=== PATIENT | female | born 1980 | race African-American/Black ===

== ENCOUNTER 2017-07-03 21:36 | Emergency (ER) | payer MEDICAID ==
[~2017-07-03] VITALS: Ht 167.6 cm; Wt 106.6 kg
[~2017-07-03 21:36] MED LIST: AZITHROMYCIN250 MG ORAL; HYDROCODON-ACE1 EA15 ORAL; IBUPROFEN600 MG ORAL; TRAMADOL HCL50 MG ORAL
[2017-07-03 21:55] VITALS: BP 131/81
--- NOTE | 2017-07-03 22:12 | Emergency Room Report ---
History of Present Illness General Chief Complaint: Chest Pain Source: Patient Present Illness HPI 37-year-old female no significant past medical history p/w chest pain for 2 days. Localized to right chest, no radiation to back or other areas, sharp in nature, gradual in onset, multiple. Denies SOB. Denies palpitations, diaphoresis, n/v. This is the first occurrence of chest pain. Denies fever, chills, cough, abd pain. Denies trauma. Denies smoking, no family history of cardiac disease at a young age. Denies any history of DVT PE no surgeries not on any OCPs Allergies: Coded Allergies: No Known Allergies (Unverified , 11/15/15) Patient History Past Medical History: see triage record Past Surgical History: none Pertinent Family History: none Last Menstrual Period: 2 weeks ago Now: No Reviewed Nursing Documentation: PMH: Agreed; PSxH: Agreed Nursing Documentation-PMH Hx Seizures: Yes Review of Systems All Other Systems: negative except mentioned in HPI Physical Exam Vital Signs Date Time Temp Pulse Resp B/P (MAP) Pulse Ox O2 Delivery O2 Flow Rate FiO2 07/03/17 21:39 98.4 80 18 131/81 99 Room Air 98.4 Sp02 EP Interpretation: reviewed, normal General Appearance: normal inspection, well appearing, no apparent distress, alert, GCS 15, non-toxic Head: normocephalic, atraumatic Eyes: bilateral eye normal inspection, bilateral eye PERRL, bilateral eye EOMI ENT: normal ENT inspection, normal pharynx, normal voice, moist mucus membranes Neck: normal inspection, full range of motion, supple Respiratory: normal inspection, lungs clear, normal breath sounds, no respiratory distress, no retraction, no wheezing, speaking full sentences, chest symmetrical Cardiovascular #1: normal inspection, regular rate, rhythm, no edema, normal capillary refill Cardiovascular #2: 2+ radial (R), 2+ radial (L) Gastrointestinal: normal inspection, non tender, soft, non-distended, no guarding Musculoskeletal: normal inspection, back normal, normal range of motion, non- tender Neurologic: normal inspection, alert, oriented x3, responsive, motor strength/ tone normal, sensory intact, normal gait, speech normal Psychiatric: normal inspection, judgement/insight normal, memory normal Skin: normal inspection, normal color, no rash, warm/dry, well hydrated, normal turgor Medical Decision Making Diagnostic Impression: Primary Impression: Chest pain ER Course 37-year-old female with no sig pmhx p/w chest pain DDX: Musculoskeletal CP/costochondritis vs. pneumothorax vs. gastritis/GERD PE less likely given history and physical examination, not hypoxic/tachycardic, no risk factors, PERC negative. ACS less likely given age/history Plan: Labs, NSAIDs, EKG, CXR Anticipate DC home as patient appears clinically well. ER course: Patient remained chest pain free during ED stay. Disposition: Patient will be discharged to home. Strict precautions discussed with patient on when to emergently return to the ED : this includes worsening/severe chest pain, palpitations, shortness of breath, syncopal episodes, fever or chills, which may indicate severe illness. Patient verbalized understanding. Patient instructed to follow up with their PMD within the next 2 days. Please note that this Emergency Department Report was dictated using [employer] worker technology software, occasionally this can lead to erroneous entry secondary to interpretation by the dictation equipment. EKG Diagnostic Results EP Interpretation: Yes Rate: normal Rhythm: NSR ST Segments: No acute changes ASA given to patient: NO Rhythm Strip EP Interpretation: Yes Rate: 80 Rhythm: NSR, no PVCs, no ectopy Chest X-ray * CXR: Ordered: Yes 1 view Indication: Chest pain EP interpretation: Yes Interpretation: No consolidation, no effusion, no PTX, no acute cardiopulmonary disease Impression: No acute disease Electronically signed by Marshal Villeda MD Laboratory Tests Test 07/03/17 22:00 White Blood Count 9.8 K/UL (4.8-10.8) Red Blood Count 4.16 M/UL (4.20-5.40) L Hemoglobin 12.1 G/DL (12.0-16.0) Hematocrit 36.4 % (37.0-47.0) L Mean Corpuscular Volume 88 FL (80-99) Mean Corpuscular Hemoglobin 29.2 PG (27.0-31.0) Mean Corpuscular Hemoglobin Concent 33.4 G/DL (32.0-36.0) Red Cell Distribution Width 10.9 % (11.6-14.8) L Platelet Count 371 K/UL (150-450) Mean Platelet Volume 5.9 FL (6.5-10.1) L Neutrophils (%) (Auto) 50.0 % (45.0-75.0) Lymphocytes (%) (Auto) 39.7 % (20.0-45.0) Monocytes (%) (Auto) 8.1 % (1.0-10.0) Eosinophils (%) (Auto) 1.4 % (0.0-3.0) Basophils (%) (Auto) 0.9 % (0.0-2.0) Urine Color Pale yellow Urine Appearance Clear Urine pH 6 (4.5-8.0) Urine Specific Rhodes 1.005 (1.005-1.035) Urine Protein Negative (NEGATIVE) Urine Glucose (UA) Negative (NEGATIVE) Urine Ketones Negative (NEGATIVE) Urine Occult Blood 2+ (NEGATIVE) H Urine Nitrite Negative (NEGATIVE) Urine Bilirubin Negative (NEGATIVE) Urine Urobilinogen Normal MG/DL (0.0-1.0) Urine Leukocyte Esterase 3+ (NEGATIVE) H Urine RBC 0-2 /HPF (0 - 2) Urine WBC 2-4 /HPF (0 - 2) Urine Squamous Epithelial Cells Few /LPF (NONE/OCC) Urine Amorphous Sediment Few /LPF (NONE) H Urine Bacteria Few /HPF (NONE) Urine HCG, Qualitative Negative (NEGATIVE) Sodium Level 138 MMOL/L (136-145) Potassium Level 3.6 MMOL/L (3.5-5.1) Chloride Level 104 MMOL/L (98-107) Carbon Dioxide Level 27 MMOL/L (21-32) Anion Gap 7 mmol/L (5-15) Blood Urea Nitrogen 10 mg/dL (7-18) Creatinine 1.0 MG/DL (0.55-1.30) Estimate Glomerular Filtration Rate > 60 mL/min (>60) Glucose Level 97 MG/DL (74-106) Calcium Level 8.9 MG/DL (8.5-10.1) Total Bilirubin 0.3 MG/DL (0.2-1.0) Aspartate Amino Transferase (AST) 12 U/L (15-37) L Alanine Aminotransferase (ALT) 20 U/L (12-78) Alkaline Phosphatase 56 U/L (46-116) Troponin I 0.000 ng/mL (0.000-0.056) Pro-B-Type Natriuretic Peptide 7 pg/mL (0-125) Total Protein 8.1 G/DL (6.4-8.2) Albumin 3.3 G/DL (3.4-5.0) L Globulin 4.8 g/dL Albumin/Globulin Ratio 0.7 (1.0-2.7) L Urine Opiates Screen Negative (NEGATIVE) Urine Barbiturates Screen Negative (NEGATIVE) Phencyclidine (PCP) Screen Negative (NEGATIVE) Urine Amphetamines Screen Negative (NEGATIVE) Urine Benzodiazepines Screen Negative (NEGATIVE) Urine Cocaine Screen Negative (NEGATIVE) Urine Marijuana (THC) Screen Negative (NEGATIVE) HIV (1&2) Antibody Rapid Pending Last Vital Signs Date Time Temp Pulse Resp B/P (MAP) Pulse Ox O2 Delivery O2 Flow Rate FiO2 07/03/17 21:39 98.4 80 18 131/81 99 Room Air 98.4 Disposition: HOME, SELF-CARE Condition: Improved Patient Instructions: Nonspecific Chest Pain Marshal Villeda M.D. July 03, 2017 22:12
[2017-07-03 22:38] LABS: ANION GAP 7 mmol/L (5-15); BLOOD UREA NITROGEN 10 mg/dL (7-18); CALCIUM 8.9 MG/DL (8.5-10.1); CARBON DIOXIDE 27 MMOL/L (21-32); CHLORIDE 104 MMOL/L (98-107); POTASSIUM 3.6 MMOL/L (3.5-5.1); SODIUM 138 MMOL/L (136-145)
[2017-07-03 22:41] LABS: APPEARANCE,URINE CLEAR; BASOPHILS % (AUTO) 0.9 % (0.0-2.0); BILIRUBIN, URINE NEGATIVE (NEGATIVE); COLOR,URINE PALE YELLOW; EOSINOPHILS % (AUTO) 1.4 % (0.0-3.0); GLUCOSE, URINE (UA) NEGATIVE (NEGATIVE); HEMATOCRIT 36.4 % (37.0-47.0); HEMOGLOBIN 12.1 G/DL (12.0-16.0); KETONES,URINE NEGATIVE (NEGATIVE); LEUKOCYTE ESTERASE ,URINE 3+ (NEGATIVE); LYMPHOCYTES % (AUTO) 39.7 % (20.0-45.0); MEAN CORPUSCULAR VOLUME 88 FL (80-99); MONOCYTES % (AUTO) 8.1 % (1.0-10.0); NITRITE,URINE NEGATIVE (NEGATIVE); PH,URINE 6 (4.5-8.0); PLATELET COUNT 371 K/UL (150-450); PROTEIN,URINE NEGATIVE (NEGATIVE); RED BLOOD COUNT 4.16 M/UL (4.20-5.40); RED CELL DISTRIBUTION WIDTH 10.9 % (11.6-14.8); UROBILINOGEN,URINE NORMAL MG/DL (0.0-1.0); WHITE BLOOD COUNT 9.8 K/UL (4.8-10.8)
[2017-07-03 22:50] LABS: ALANINE AMINOTRANSFERASE 20 U/L (12-78); ALBUMIN 3.3 G/DL (3.4-5.0); ALBUMIN/GLOBULIN RATIO 0.7 (1.0-2.7); ALKALINE PHOSPHATASE 56 U/L (46-116); ASPARTATE AMINO TRANSFERASE 12 U/L (15-37); BILIRUBIN,TOTAL 0.3 MG/DL (0.2-1.0)
[2017-07-04 00:12] VITALS: BP 129/78
--- NOTE | 2017-07-04 10:01 | Diagnostic Imaging Report ---
Indication: Chest pain Comparison: 11/15/2015 A single view chest radiograph was obtained. Findings: Cardiomediastinal appearance is within normal limits for age. Pulmonary vascularity is appropriate. The diaphragmatic contour is smooth and costophrenic angles are sharp. No pleural effusions are identified. The bones are unremarkable. Impression: No acute findings
--- NOTE | 2017-07-04 15:54 | Cardiology Report ---
APPROVED REPORT EKG Measurement Heart [id number] Normal sinus rhythm Normal ECG
== END 2017-07-04 00:15 | disposition home or self-care (01) ==
LOC: EMR 22:25
DX: R07.9 Chest pain, unspecified (principal)
CPT/HCPCS: 36415; 71045; 80053; 80307; 81003; 81025; 83880; 84484; 85025; 86703; 93005; 99283

== ENCOUNTER 2017-10-08 01:19 | Emergency (ER) | payer MEDICAID ==
[~2017-10-08] VITALS: Ht 167.6 cm; Wt 108.9 kg
[2017-10-08 01:47] VITALS: BP 112/75
[2017-10-08] MEDS ORDERED: Bacitracin Oint UD TOPIC ONE (02:00)
[2017-10-08] MEDS ORDERED: Bactrim-DS 1 tab ORAL ONE (02:00)
[2017-10-08] MEDS ORDERED: MUPIROCIN22 GM TOPIC (02:05)
[2017-10-08] MEDS ORDERED: BACTRIM DS TAB1 EAC1 ORAL (02:05)
--- NOTE | 2017-10-08 02:05 | Emergency Room Report ---
History of Present Illness General Chief Complaint: Skin Rash/Abscess Source: Patient Present Illness HPI Is a 37-year-old female with no significant past medical history. She presents with lesion to her legs. She is concerned that it may be spider bite. Did not see anything biting her. She noticed some itching and swelling to that area. This is a blister to her left ankle area. She also has lesion to her left thigh and right ankle area. Itching in nature. No nausea no vomiting. No fever or chills. Pain is 5 out of 10. Did not take anything for it. Allergies: Coded Allergies: No Known Allergies (Unverified , 11/15/15) Patient History Past Medical History: see triage record, old chart reviewed Past Surgical History: other Pertinent Family History: none Social History: Denies: smoking Last Menstrual Period: Sep Now: No Immunizations: other Reviewed Nursing Documentation: PMH: Agreed; PSxH: Agreed Nursing Documentation-PMH History Of Psychiatric Problem: Yes - PANIC ATTACK Hx Seizures: Yes Review of Systems Eye: Denies: eye pain, blurred vision ENT: Denies: ear pain, nose congestion, throat swelling Respiratory: Denies: cough, shortness of breath Cardiovascular: Denies: chest pain, palpitations Gastrointestinal: Denies: abdominal pain, diarrhea, nausea, vomiting Musculoskeletal: Denies: back pain, joint pain Skin: Reports: rash Neurological: Denies: headache, numbness Endocrine: Denies: increased thirst, increased urine Hematologic/Lymphatic: Denies: easy bruising All Other Systems: negative except mentioned in HPI Physical Exam Vital Signs Date Time Temp Pulse Resp B/P (MAP) Pulse Ox O2 Delivery O2 Flow Rate FiO2 10/08/17 01:31 98.3 85 16 112/75 98 Room Air 98.2 vitals normal Sp02 EP Interpretation: reviewed, normal General Appearance: well appearing, no apparent distress, alert Head: normocephalic, atraumatic Eyes: bilateral eye PERRL, bilateral eye EOMI ENT: hearing grossly normal, normal pharynx Neck: full range of motion, supple, no meningismus Respiratory: chest non-tender, lungs clear, normal breath sounds Cardiovascular #1: regular rate, rhythm, no murmur Gastrointestinal: normal bowel sounds, non tender, no mass, no organomegaly, no bruit, non-distended Musculoskeletal: back normal, gait/station normal, normal range of motion, other - Left thigh: There is an erythematous lesion measuring about 3 cm. No abscess seen. Neurologic: alert, oriented x3 Psychiatric: mood/affect normal Skin: warm/dry Medical Decision Making Diagnostic Impression: Primary Impression: Cellulitis and abscess of lower extremity ER Course Patient presents with cellulitis and lower extremity. Most likely MRSA. No evidence of necrotizing fasciitis. No obvious abscess that can be I and D. I did send a culture of the blister. We'll discharge home. Last Vital Signs Date Time Temp Pulse Resp B/P (MAP) Pulse Ox O2 Delivery O2 Flow Rate FiO2 10/08/17 01:47 98.2 16 112/75 98 Room Air 98.2 10/08/17 01:31 85 Status: improved Disposition: HOME, SELF-CARE Condition: Stable Scripts Mupirocin* (MUPIROCIN*) 22 Gm Oint...g. 1 APPLIC TOPIC THREE TIMES A DAY, #22 GM Prov: EDMUND FARRELL M.D. 10/08/17 Trimethoprim/Sulfamethoxazole 160/800* (BACTRIM DS TABLET*) 1 Each Tablet 1 TAB ORAL Q12H, #14 TAB 0 Refills Prov: EDMUND FARRELL M.D. 10/08/17 Additional Instructions: Keep area clean. Clean first with hydrogen peroxide and then apply antibiotic ointment. Follow-up with your Dr. in 2 to 3 days of not better. Return if symptom worsen. EDMUND FARRELL M.D. Oct 08, 2017 02:05
[2017-10-08 02:14] VITALS: BP 112/75
== END 2017-10-08 02:15 | disposition home or self-care (01) ==
LOC: EMR 01:34
DX: L03.116 Cellulitis of left lower limb (principal)
CPT/HCPCS: 87070; 87205; 99283

== ENCOUNTER 2017-10-17 00:51 | Emergency (ER) | payer MEDICAID ==
[~2017-10-17] VITALS: Ht 167.6 cm; Wt 108.9 kg
[~2017-10-17 00:51] MED LIST changes: +BACTRIM DS TAB1 EAC1 ORAL; +MUPIROCIN22 GM TOPIC
[2017-10-17 01:05] VITALS: BP 110/72
[2017-10-17] MEDS ORDERED: BENADRYL25 MG ORAL (01:13)
[2017-10-17 01:20] VITALS: BP 110/72
--- NOTE | 2017-10-18 04:52 | Emergency Room Report ---
History of Present Illness General Chief Complaint: Skin Rash/Abscess Source: Patient Present Illness HPI Patient is a 37-year-old female who presented after increased generalized skin rash. Patient recently been treated for urinary infection and was given prescription for antibiotics. Patient had the had not been having any fever. She denied vomiting. Patient had the been taking Bactrim. She reports having a generalized body itchiness. Allergies: Coded Allergies: No Known Allergies (Unverified , 11/15/15) Patient History Past Medical History: see triage record Last Menstrual Period: 10/02/17 Now: No Reviewed Nursing Documentation: PMH: Agreed; PSxH: Agreed Nursing Documentation-PMH Past Medical History: No History, Except For Hx Seizures: Yes Review of Systems All Other Systems: negative except mentioned in HPI Physical Exam Vital Signs Date Time Temp Pulse Resp B/P (MAP) Pulse Ox O2 Delivery O2 Flow Rate FiO2 10/17/17 00:53 98.4 91 18 110/72 96 Room Air 98.4 Sp02 EP Interpretation: reviewed, normal General Appearance: alert, GCS 15 Head: atraumatic ENT: normal ENT inspection, hearing grossly normal, normal voice Neck: normal inspection, full range of motion, supple, no bony tend Respiratory: normal inspection, lungs clear, normal breath sounds, no respiratory distress, no retraction, no wheezing Cardiovascular #1: regular rate, rhythm, no edema Gastrointestinal: normal inspection, normal bowel sounds, non tender, soft, no guarding, no hernia Genitourinary: no CVA tenderness Musculoskeletal: normal inspection, back normal, normal range of motion Neurologic: normal inspection, alert, responsive, speech normal Psychiatric: normal inspection, judgement/insight normal, mood/affect normal Skin: other - mild extremity papular rash without erythema or exudates Medical Decision Making Diagnostic Impression: Primary Impression: Rash and other nonspecific skin eruption ER Course Patient presented for skin rash. Differential diagnosis included was not limited to Akhtar-Gian syndrome, urticaria, erythema multiforme, contact dermatitis. Patient's benign exam and does not appear to require any further imaging or laboratory testing at this time. The patient is advised to discontinue her antibiotics. Patient was advised follow-up with primary care physician. She is given prescription for Benadryl for itching. Last Vital Signs Date Time Temp Pulse Resp B/P (MAP) Pulse Ox O2 Delivery O2 Flow Rate FiO2 10/17/17 01:20 98.4 18 110/72 96 Room Air 98.4 10/17/17 01:05 71 Status: improved Disposition: HOME, SELF-CARE Condition: Stable Scripts Diphenhydramine Hcl* (BENADRYL*) 25 Mg Capsule 25 MG ORAL Q6H PRN for Itching, #30 CAP Prov: Doc Sigala MD 10/17/17 Referrals: SMITHA RICH,REFERRING (PCP) Patient Instructions: Doc Gutiérrez MD Oct 18, 2017 04:52
== END 2017-10-17 01:20 | disposition home or self-care (01) ==
LOC: EMR 01:17
DX: R21 Rash and other nonspecific skin eruption (principal); Z86.69 Personal history of other diseases of the nervous system and sense organs
CPT/HCPCS: 99282

== ENCOUNTER 2017-12-13 20:10 | Emergency (ER) | payer MEDICAID ==
[~2017-12-13] VITALS: Ht 170.2 cm; Wt 108.9 kg
[~2017-12-13 20:10] MED LIST changes: +BENADRYL25 MG ORAL
[2017-12-13 20:30] VITALS: BP 142/80
[2017-12-13] MEDS ORDERED: IBUPROFEN600 MG ORAL (21:31)
[2017-12-13 21:46] VITALS: BP 138/74
[2017-12-13 21:51] VITALS: BP 138/74
--- NOTE | 2017-12-13 22:20 | Emergency Room Report ---
History of Present Illness General Chief Complaint: Chest Pain Source: Patient, Medical Record Present Illness HPI Patient presents with complaints of left chest pain Reports that the pain has been off and on for the past several days She feels that the pain is worse with turning to the left or touching the area Denies any shortness of breath denies any vomiting Denies any recent travel Denies any calf pain or swelling Pain is 3 out of 10 Does not recall specifically what she was doing when she first felt the discomfort Allergies: Coded Allergies: No Known Allergies (Unverified , 11/15/15) Patient History Past Medical History: see triage record Pertinent Family History: none Last Menstrual Period: 11/21/2017 Now: No Reviewed Nursing Documentation: PMH: Agreed; PSxH: Agreed Nursing Documentation-PMH Past Medical History: No History, Except For Hx Seizures: Yes - Last one 14 years ago. Does not take any meds for it. Review of Systems All Other Systems: negative except mentioned in HPI Physical Exam Vital Signs Date Time Temp Pulse Resp B/P (MAP) Pulse Ox O2 Delivery O2 Flow Rate FiO2 12/13/17 20:28 99.5 90 19 140/77 100 Room Air Sp02 EP Interpretation: reviewed, normal General Appearance: well appearing, no apparent distress Head: normocephalic, atraumatic Eyes: bilateral eye PERRL, bilateral eye EOMI ENT: hearing grossly normal, normal pharynx, TMs + canals normal, uvula midline Neck: full range of motion, supple, no meningismus, no bony tend Respiratory: lungs clear, normal breath sounds, no rhonchi, no respiratory distress, no retraction, no accessory muscle use Cardiovascular #1: normal peripheral pulses, regular rate, rhythm, no edema, no gallop, no JVD, no murmur Gastrointestinal: normal bowel sounds, non tender, soft, no mass, no organomegaly, non-distended, no guarding, no hernia, no pulsatile mass, no rebound Genitourinary: no CVA tenderness Musculoskeletal: normal inspection Neurologic: oriented x3, responsive, 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 tested, motor strength/ tone normal, sensory intact Psychiatric: mood/affect normal Skin: normal color, no rash, warm/dry, palpation normal Lymphatic: normal inspection, no adenopathy Medical Decision Making Diagnostic Impression: Primary Impression: Chest pain ER Course Patient is a fairly complex patient with multiple differential to consideration including but not limited to cardiac cardiopulmonary and vascular emergencies Patient's cardiac score is low EKG and chest x-ray are normal Patient remains hemodynamically stable Heart rate is normal my consideration for pulmonary embolism is low and further investigation has not been made at this time given the clinical history and the exam Patient stable for initial conservative outpatient trial and will return with any worsening symptoms EKG Diagnostic Results Rate: normal Rhythm: NSR ST Segments: no acute changes Rhythm Strip Diag. Results EP Interpretation: yes Rate: 80 Rhythm: NSR, no PVC's, no ectopy Chest X-Ray Diagnostic Results Chest X-Ray Diagnostic Results : Chest X-Ray Ordered: Yes # of Views/Limited/Complete: 1 View Indication: Chest Pain EP Interpretation: Yes Interpretation: no consolidation, no effusion, no pneumothorax Impression: No acute disease Electronically Signed by: Brandi Langford DO Last Vital Signs Date Time Temp Pulse Resp B/P (MAP) Pulse Ox O2 Delivery O2 Flow Rate FiO2 12/13/17 21:51 98.0 19 138/74 100 Room Air 12/13/17 21:47 78 Status: improved Disposition: HOME, SELF-CARE Condition: Stable Scripts Ibuprofen* (MOTRIN*) 600 Mg Tablet 600 MG ORAL Q8H PRN for For Pain, #20 TAB 0 Refills Prov: Brandi Langford DO 12/13/17 Patient Instructions: Nonspecific Chest Pain Additional Instructions: Patient is provided with the discharge instructions notified to follow up with primary doctor in the next 2-3 days otherwise return to the er with any worsening symptoms. Please note that this report is being documented using [employer] technology. This can lead to erroneous entry secondary to incorrect interpretation by the dictating instrument. Brandi Langford DO Dec 13, 2017 22:20
--- NOTE | 2017-12-14 13:50 | Diagnostic Imaging Report ---
Indication: Chest pain Comparison: 07/03/2017 A single view chest radiograph was obtained. Findings: Cardiomediastinal appearance is within normal limits for age. The lungs are clear. Pulmonary vascularity is appropriate. The diaphragmatic contour is smooth and costophrenic angles are sharp. No pleural effusions are identified. The bones are unremarkable. Impression: No acute findings
--- NOTE | 2017-12-15 15:20 | Cardiology Report ---
APPROVED REPORT EKG Measurement Heart [id number] Normal sinus rhythm Normal ECG
== END 2017-12-13 21:51 | disposition home or self-care (01) ==
LOC: EMR 20:40
DX: R07.9 Chest pain, unspecified (principal)
CPT/HCPCS: 71045; 93005; 99283

== ENCOUNTER 2018-02-21 04:22 | Emergency (ER) | payer MEDICAID ==
[~2018-02-21] VITALS: Ht 165.1 cm; Wt 108.9 kg
[2018-02-21] MEDS ORDERED: NKM (04:51)
--- NOTE | 2018-02-21 04:56 | NUR ---
ED Nurse Note: Pt walked in ER and c/o R upper shoulder pain. pain level 7/10. Pt is AO x 4times, VSS, on room air no distress. ERMD seen Pt at bedside.
[2018-02-21 04:58] VITALS: BP 134/78
--- NOTE | 2018-02-21 05:29 | Emergency Room Report ---
History of Present Illness General Chief Complaint: Back Pain-No Injury Source: Patient (Doc Sigala MD) Present Illness HPI Patient is a 38-year-old female presented after increased upper back pain. Patient had recent onset of symptoms. Patient denies any fever. She reports having some increased cough. She had been having intermittent chest pain. This is gotten somewhat worse. Patient denies any relief with ibuprofen. (Doc Sigala MD) Allergies: Coded Allergies: No Known Allergies (Unverified , 11/15/15) Patient History Past Medical History: see triage record Last Menstrual Period: around JAN Now: No : 4 Para: 3 Reviewed Nursing Documentation: PMH: Agreed; PSxH: Agreed (Doc Sigala MD) Nursing Documentation-PMH Hx Seizures: Yes - 13 years ago (Doc Sigala MD) Review of Systems All Other Systems: negative except mentioned in HPI (Doc Sigala MD) Physical Exam Vital Signs Date Time Temp Pulse Resp B/P (MAP) Pulse Ox O2 Delivery O2 Flow Rate FiO2 02/21/18 04:45 97.9 72 14 143/71 99 Room Air Sp02 EP Interpretation: reviewed, normal General Appearance: normal inspection, well appearing, no apparent distress, alert, GCS 15, obese Head: atraumatic ENT: normal ENT inspection, hearing grossly normal, normal voice Neck: normal inspection, full range of motion, supple, no bony tend Respiratory: normal inspection, lungs clear, normal breath sounds, no respiratory distress, no retraction, no wheezing Cardiovascular #1: regular rate, rhythm, no edema Gastrointestinal: normal inspection, normal bowel sounds, non tender, soft, no guarding, no hernia Genitourinary: no CVA tenderness Musculoskeletal: normal inspection, back normal, normal range of motion Neurologic: normal inspection, alert, oriented x3, responsive, 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 Patient was noted to have multiple visits for chest discomfort in the past. Patient was noted to have worsening pain. Chest x-ray 1 view interpreted by me showed normal cardiac size without evident infiltrate. Patient had previous nondiagnostic workups. CT of the chest was ordered due to patient's concerning chest discomfort. Labs Test 02/21/18 06:10 02/21/18 06:30 Urine Color Pale yellow Urine Appearance Slightly cloudy Urine pH 7 (4.5-8.0) Urine Specific Hardy 1.015 (1.005-1.035) Urine Protein Negative (NEGATIVE) Urine Glucose (UA) Negative (NEGATIVE) Urine Ketones Negative (NEGATIVE) Urine Blood 3+ (NEGATIVE) Urine Nitrite Negative (NEGATIVE) Urine Bilirubin Negative (NEGATIVE) Urine Urobilinogen Normal MG/DL (0.0-1.0) Urine Leukocyte Esterase 1+ (NEGATIVE) Urine RBC 2-4 /HPF (0 - 2) Urine WBC 0-2 /HPF (0 - 2) Urine Squamous Epithelial Cells Few /LPF (NONE/OCC) Urine Bacteria Few /HPF (NONE) Urine HCG, Qualitative Negative (NEGATIVE) White Blood Count 6.0 K/UL (4.8-10.8) Red Blood Count 4.25 M/UL (4.20-5.40) Hemoglobin 12.5 G/DL (12.0-16.0) Hematocrit 36.9 % (37.0-47.0) Mean Corpuscular Volume 87 FL (80-99) Mean Corpuscular Hemoglobin 29.4 PG (27.0-31.0) Mean Corpuscular Hemoglobin Concent 33.9 G/DL (32.0-36.0) Red Cell Distribution Width 11.7 % (11.6-14.8) Platelet Count 383 K/UL (150-450) Mean Platelet Volume 5.9 FL (6.5-10.1) Neutrophils (%) (Auto) 58.1 % (45.0-75.0) Lymphocytes (%) (Auto) 32.3 % (20.0-45.0) Monocytes (%) (Auto) 8.2 % (1.0-10.0) Eosinophils (%) (Auto) 0.8 % (0.0-3.0) Basophils (%) (Auto) 0.6 % (0.0-2.0) Prothrombin Time 10.6 SEC (9.30-11.50) Prothromb Time International Ratio 1.0 (0.9-1.1) Activated Partial Thromboplast Time 27 SEC (23-33) Sodium Level 137 MMOL/L (136-145) Potassium Level 4.2 MMOL/L (3.5-5.1) Chloride Level 105 MMOL/L (98-107) Carbon Dioxide Level 26 MMOL/L (21-32) Anion Gap 6 mmol/L (5-15) Blood Urea Nitrogen 14 mg/dL (7-18) Creatinine 1.0 MG/DL (0.55-1.30) Estimat Glomerular Filtration Rate > 60 mL/min (>60) Glucose Level 101 MG/DL (74-106) Calcium Level 8.9 MG/DL (8.5-10.1) Total Bilirubin 0.4 MG/DL (0.2-1.0) Aspartate Amino Transf (AST/SGOT) 14 U/L (15-37) Alanine Aminotransferase (ALT/SGPT) 20 U/L (12-78) Alkaline Phosphatase 55 U/L (46-116) Troponin I 0.004 ng/mL (0.000-0.056) Total Protein 7.7 G/DL (6.4-8.2) Albumin 3.3 G/DL (3.4-5.0) Globulin 4.4 g/dL Albumin/Globulin Ratio 0.8 (1.0-2.7) (Doc Sigala MD) ER Course This patient was turned over to me by Dr. Sigala. The patient has a history of recurrent chest pain. She was awaiting CTA of the chest to rule out aortic dissection. There is no evidence of aortic abnormality or PE. The patient was well-appearing and nontoxic. I suspect the patient has costochondritis or musculoskeletal pain in the etiology. The patient will be given anti- inflammatories and instructed to follow-up closely with her primary care physician. At this time no emergency medical condition is identified. Laboratory Tests Test 02/21/18 06:10 02/21/18 06:30 Urine Color Pale yellow Urine Appearance Slightly cloudy Urine pH 7 (4.5-8.0) Urine Specific Hardy 1.015 (1.005-1.035) Urine Protein Negative (NEGATIVE) Urine Glucose (UA) Negative (NEGATIVE) Urine Ketones Negative (NEGATIVE) Urine Blood 3+ (NEGATIVE) H Urine Nitrite Negative (NEGATIVE) Urine Bilirubin Negative (NEGATIVE) Urine Urobilinogen Normal MG/DL (0.0-1.0) Urine Leukocyte Esterase 1+ (NEGATIVE) H Urine RBC 2-4 /HPF (0 - 2) H Urine WBC 0-2 /HPF (0 - 2) Urine Squamous Epithelial Cells Few /LPF (NONE/OCC) Urine Bacteria Few /HPF (NONE) Urine HCG, Qualitative Negative (NEGATIVE) White Blood Count 6.0 K/UL (4.8-10.8) Red Blood Count 4.25 M/UL (4.20-5.40) Hemoglobin 12.5 G/DL (12.0-16.0) Hematocrit 36.9 % (37.0-47.0) L Mean Corpuscular Volume 87 FL (80-99) Mean Corpuscular Hemoglobin 29.4 PG (27.0-31.0) Mean Corpuscular Hemoglobin Concent 33.9 G/DL (32.0-36.0) Red Cell Distribution Width 11.7 % (11.6-14.8) Platelet Count 383 K/UL (150-450) Mean Platelet Volume 5.9 FL (6.5-10.1) L Neutrophils (%) (Auto) 58.1 % (45.0-75.0) Lymphocytes (%) (Auto) 32.3 % (20.0-45.0) Monocytes (%) (Auto) 8.2 % (1.0-10.0) Eosinophils (%) (Auto) 0.8 % (0.0-3.0) Basophils (%) (Auto) 0.6 % (0.0-2.0) Erythrocyte Sedimentation Rate 23 MM/HR (0-20) H Prothrombin Time 10.6 SEC (9.30-11.50) Prothrombin Time INR 1.0 (0.9-1.1) PTT 27 SEC (23-33) Sodium Level 137 MMOL/L (136-145) Potassium Level 4.2 MMOL/L (3.5-5.1) Chloride Level 105 MMOL/L (98-107) Carbon Dioxide Level 26 MMOL/L (21-32) Anion Gap 6 mmol/L (5-15) Blood Urea Nitrogen 14 mg/dL (7-18) Creatinine 1.0 MG/DL (0.55-1.30) Estimate Glomerular Filtration Rate > 60 mL/min (>60) Glucose Level 101 MG/DL (74-106) Calcium Level 8.9 MG/DL (8.5-10.1) Total Bilirubin 0.4 MG/DL (0.2-1.0) Aspartate Amino Transferase (AST) 14 U/L (15-37) L Alanine Aminotransferase (ALT) 20 U/L (12-78) Alkaline Phosphatase 55 U/L (46-116) Troponin I 0.004 ng/mL (0.000-0.056) Total Protein 7.7 G/DL (6.4-8.2) Albumin 3.3 G/DL (3.4-5.0) L Globulin 4.4 g/dL Albumin/Globulin Ratio 0.8 (1.0-2.7) L ([facility]. ) Last Vital Signs Date Time Temp Pulse Resp B/P (MAP) Pulse Ox O2 Delivery O2 Flow Rate FiO2 02/21/18 04:58 97.9 85 16 134/78 99 Room Air Status: unchanged (Doc Sigala MD) Referrals: SMITHA RICH,REFERRING (PCP) Doc Sigala MD Feb 21, 2018 05:29 [facility] Feb 21, 2018 09:39
[2018-02-21] MEDS ORDERED: Albuterol/Ipratropium 3ml neb HHN ONE (05:45)
[2018-02-21] MEDS ORDERED: Morphine Sulfate 4mg/ml Inj (IV/IM USE ONLY) IVP ONE (06:15)
[2018-02-21] MEDS ORDERED: Isovue-370 150ml vial INJ PRN (06:15)
[2018-02-21 06:27] LABS: APPEARANCE,URINE SLIGHTLY CLOUDY; BILIRUBIN, URINE NEGATIVE (NEGATIVE); COLOR,URINE PALE YELLOW; GLUCOSE, URINE (UA) NEGATIVE (NEGATIVE); KETONES,URINE NEGATIVE (NEGATIVE); LEUKOCYTE ESTERASE ,URINE 1+ (NEGATIVE); NITRITE,URINE NEGATIVE (NEGATIVE); PH,URINE 7 (4.5-8.0); PROTEIN,URINE NEGATIVE (NEGATIVE); UROBILINOGEN,URINE NORMAL MG/DL (0.0-1.0)
--- NOTE | 2018-02-21 06:41 | NUR ---
ED Nurse Note: Urine and blood sample sent to lab.
[2018-02-21 06:59] LABS: BASOPHILS % (AUTO) 0.6 % (0.0-2.0); EOSINOPHILS % (AUTO) 0.8 % (0.0-3.0); HEMATOCRIT 36.9 % (37.0-47.0); HEMOGLOBIN 12.5 G/DL (12.0-16.0); LYMPHOCYTES % (AUTO) 32.3 % (20.0-45.0); MEAN CORPUSCULAR VOLUME 87 FL (80-99); MONOCYTES % (AUTO) 8.2 % (1.0-10.0); NEUTROPHILS % (AUTO) 58.1 % (45.0-75.0); PLATELET COUNT 383 K/UL (150-450); RED BLOOD COUNT 4.25 M/UL (4.20-5.40); RED CELL DISTRIBUTION WIDTH 11.7 % (11.6-14.8)
[2018-02-21 07:02] LABS: ANION GAP 6 mmol/L (5-15); BLOOD UREA NITROGEN 14 mg/dL (7-18); CALCIUM 8.9 MG/DL (8.5-10.1); CARBON DIOXIDE 26 MMOL/L (21-32); CHLORIDE 105 MMOL/L (98-107); POTASSIUM 4.2 MMOL/L (3.5-5.1); SODIUM 137 MMOL/L (136-145)
[2018-02-21 07:07] LABS: ALANINE AMINOTRANSFERASE 20 U/L (12-78); ALBUMIN 3.3 G/DL (3.4-5.0); ALBUMIN/GLOBULIN RATIO 0.8 (1.0-2.7); ALKALINE PHOSPHATASE 55 U/L (46-116); ASPARTATE AMINO TRANSFERASE 14 U/L (15-37); BILIRUBIN,TOTAL 0.4 MG/DL (0.2-1.0)
--- NOTE | 2018-02-21 07:24 | NUR ---
HAND-OFF: Report given to MAGDALENE Cowan.
--- NOTE | 2018-02-21 07:30 | NUR ---
ED Nurse Note: received patient in bed, patient resting comfortably in bed, received consent for contrast from pt, risk/benefit explained by Dr. Macias.
--- NOTE | 2018-02-21 09:14 | Diagnostic Imaging Report ---
Indication: Chest pain Technique: Continuous helical transaxial imaging of the chest was obtained from the thoracic inlet to the upper abdomen during rapid intravenous contrast administration. Arterial phase of enhancement obtained. Coronal 2-D reformats were also obtained and maximum intensity projection images in multiple planes. Study obtained in a Siemens sensation [address] Automatic Exposure Control was utilized. Total Dose length Product (DLP): 976.[address] Dose Index Volume (CTDIvol): 27.89 mGy Comparison: None Findings: Pulmonary artery is not optimally opacified but there are no obvious filling defects. No adenopathy, pleural or pericardial effusions are identified. The aorta is also not opacified well but there is no evidence of an aneurysm. No infiltrate identified. There is breathing motion further limiting evaluation. The visualized part of the upper abdomen is unremarkable. IMPRESSION: No acute disease identified within the chest. Suboptimal evaluation for pulmonary embolus with no obvious evidence of such. Breathing motion artifact The CT scanner at [facility] is accredited by the [employer] and the scans are performed using dose optimization techniques as appropriate to a performed exam including Automatic Exposure control.
[2018-02-21] MEDS ORDERED: IBUPROFEN800 MG ORAL (09:41)
[2018-02-21] MEDS ORDERED: LIDODERM700 M1 TOPIC (09:41)
--- NOTE | 2018-02-21 09:56 | NUR ---
ED Nurse Note: Patient is being discharged, cleared by ERMD. Discharge instructions/paper given, explained, explained eletronic prescription sent to the [facility]. patientverbalized understanding, received signature on the paper. ID band removed. Patient ambulated out of ED with steady gait with all belongings.
[2018-02-21 09:58] VITALS: BP 134/78
--- NOTE | 2018-02-21 11:44 | Diagnostic Imaging Report ---
Indication: Chest pain Comparison: 12/13/2017 A single view chest radiograph was obtained. Findings: Cardiomediastinal appearance is within normal limits for age. The lungs are clear. Pulmonary vascularity is appropriate. The diaphragmatic contour is smooth and costophrenic angles are sharp. No pleural effusions are identified. The bones are unremarkable. Impression: No acute findings
== END 2018-02-21 10:05 | disposition home or self-care (01) ==
LOC: EMR 05:01
DX: R07.9 Chest pain, unspecified (principal)
CPT/HCPCS: 36415; 71045; 71275; 80053; 81003; 81025; 84484; 85025; 85610; 85651; 85730; 93005; 94640; 94664; 99284; J2270; Q9967; J7620

== ENCOUNTER 2018-05-05 11:48 | Emergency (ER) | payer MEDICAID ==
[~2018-05-05] VITALS: Ht 167.6 cm; Wt 111.1 kg
[~2018-05-05 11:48] MED LIST changes: +IBUPROFEN800 MG ORAL; +LIDODERM700 M1 TOPIC; +NKM
[2018-05-05 11:55] VITALS: BP 128/77
--- NOTE | 2018-05-05 11:55 | NUR ---
ED Nurse Note: Ambulated in to ER due to sharp pressure on chest and back. Denies any pain at this time. Pt states that she had SOB when she had pain on the chest, pointing epigastric area. No labor breathing and RA 99%.
[2018-05-05 12:13] VITALS: BP 128/77
--- NOTE | 2018-05-05 12:14 | NUR ---
ED Nurse Note: Pt cleared by health care Provider for discharge. DC instructions/prescription was given and explained to pt and verbalized understanding of teachings. All medical deviecs such as ID band removed. Pt is AAO x4, ambulatory and left with all personal belongings.
--- NOTE | 2018-05-05 12:16 | Emergency Room Report ---
History of Present Illness General Chief Complaint: Dyspnea/Respdistress Source: Patient Present Illness HPI Patient presents with complaints of shortness of breath reports that she is supposed to be seeing a new physician on Sunday for the symptoms Reports that over the past several nights she has had to turn on her side to peel to sleep better because of her breathing Denies any pleurisy denies any abdominal pain Denies any cough Initially reports symptoms are worse in the middle the night however intermittently throughout the day also feels some shortness of breath sensation denies any new medication denies any recent travel or trauma Allergies: Coded Allergies: No Known Allergies (Unverified , 11/15/15) Patient History Past Medical History: see triage record Pertinent Family History: none Last Menstrual Period: now Now: No Reviewed Nursing Documentation: PMH: Agreed; PSxH: Agreed Nursing Documentation-PMH Past Medical History: No History, Except For Hx Seizures: Yes Review of Systems All Other Systems: negative except mentioned in HPI Physical Exam Vital Signs Date Time Temp Pulse Resp B/P (MAP) Pulse Ox O2 Delivery O2 Flow Rate FiO2 05/05/18 11:50 98.2 84 20 122/91 98 Room Air Sp02 EP Interpretation: reviewed, normal General Appearance: well appearing, no apparent distress Head: normocephalic, atraumatic Eyes: bilateral eye PERRL, bilateral eye EOMI ENT: hearing grossly normal, normal pharynx, TMs + canals normal, uvula midline Neck: full range of motion, supple, no meningismus, no bony tend Respiratory: lungs clear, normal breath sounds, no rhonchi, no respiratory distress, no retraction, no accessory muscle use Cardiovascular #1: normal peripheral pulses, regular rate, rhythm, no edema, no gallop, no JVD, no murmur Gastrointestinal: normal bowel sounds, non tender, soft, no mass, no organomegaly, non-distended, no guarding, no hernia, no pulsatile mass, no rebound Genitourinary: no CVA tenderness Musculoskeletal: normal inspection Neurologic: oriented x3, responsive, 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, motor strength/ tone normal, sensory intact Psychiatric: mood/affect normal Skin: normal color, no rash, warm/dry, palpation normal Lymphatic: normal inspection, no adenopathy Medical Decision Making Diagnostic Impression: Primary Impression: Dyspnea Additional Impression: possible sleep apnea ER Course Patient is a fairly complex patient with multiple differential to consideration including but not limited to cardiac cardiopulmonary and vascular emergencies Patient otherwise appears comfortable placed on cardiac monitoring and has a normal sinus rhythm Oxygenation and saturation are appropriate patient is a fairly benign medical evaluation as well She has had recent CT imaging will x-rays and extensive blood work Given the exam and presentation today did not feel the patient required any further emergent intervention at this time I do suspect there is some sign of possible sleep apnea she was provided information regarding that and will follow closely by primary physician Rhythm Strip Diag. Results EP Interpretation: yes Rate: 80 Rhythm: NSR, no PVC's, no ectopy Last Vital Signs Date Time Temp Pulse Resp B/P (MAP) Pulse Ox O2 Delivery O2 Flow Rate FiO2 05/05/18 12:02 84 15 Room Air 05/05/18 11:55 98.2 128/77 99 Status: unchanged Disposition: HOME, SELF-CARE Condition: Stable Referrals: Pre[facility] Patient Instructions: Shortness of Breath, [id number], Sleep Apnea, Easy-to- Read Additional Instructions: Patient is provided with the discharge instructions notified to follow up with primary doctor in the next 2-3 days otherwise return to the er with any worsening symptoms. Please note that this report is being documented using [employer] technology. This can lead to erroneous entry secondary to incorrect interpretation by the dictating instrument. Brandi Langford DO May 05, 2018 12:16
== END 2018-05-05 12:30 | disposition home or self-care (01) ==
LOC: EMR 12:14
DX: R06.00 Dyspnea, unspecified (principal)
CPT/HCPCS: 99282

== ENCOUNTER 2018-11-25 12:27 | Emergency (ER) | payer MEDICAID ==
[~2018-11-25] VITALS: Ht 167.6 cm; Wt 113.4 kg
--- NOTE | 2018-11-25 12:35 | NUR ---
ED Nurse Note: Late entry. PT walked into ED from home, for SOB, pressure on chest, but no chest pain currently per PT, no reports of N/V/D; shows no signs of respiratory distress. Will continue to monitor.
[2018-11-25 13:29] VITALS: BP 147/80
[2018-11-25 13:54] LABS: APPEARANCE,URINE CLEAR; BILIRUBIN, URINE NEGATIVE (NEGATIVE); COLOR,URINE PALE YELLOW; GLUCOSE, URINE (UA) NEGATIVE (NEGATIVE); KETONES,URINE NEGATIVE (NEGATIVE); LEUKOCYTE ESTERASE ,URINE NEGATIVE (NEGATIVE); NITRITE,URINE NEGATIVE (NEGATIVE); PH,URINE 6.5 (4.5-8.0); PROTEIN,URINE NEGATIVE (NEGATIVE); UROBILINOGEN,URINE NORMAL MG/DL (0.0-1.0)
[2018-11-25 13:58] LABS: BASOPHILS % (AUTO) 0.9 % (0.0-2.0); EOSINOPHILS % (AUTO) 0.5 % (0.0-3.0); HEMATOCRIT 39.5 % (37.0-47.0); HEMOGLOBIN 13.1 G/DL (12.0-16.0); LYMPHOCYTES % (AUTO) 30.8 % (20.0-45.0); MEAN CORPUSCULAR VOLUME 88 FL (80-99); MONOCYTES % (AUTO) 6.9 % (1.0-10.0); PLATELET COUNT 431 K/UL (150-450); RED BLOOD COUNT 4.51 M/UL (4.20-5.40); RED CELL DISTRIBUTION WIDTH 11.2 % (11.6-14.8); WHITE BLOOD COUNT 7.8 K/UL (4.8-10.8)
[2018-11-25 14:06] LABS: ANION GAP 9 mmol/L (5-15); BLOOD UREA NITROGEN 9 mg/dL (7-18); CALCIUM 9.2 MG/DL (8.5-10.1); CARBON DIOXIDE 26 MMOL/L (21-32); CHLORIDE 105 MMOL/L (98-107); POTASSIUM 3.8 MMOL/L (3.5-5.1); SODIUM 140 MMOL/L (136-145)
[2018-11-25 14:23] LABS: ALANINE AMINOTRANSFERASE 23 U/L (12-78); ALBUMIN 3.6 G/DL (3.4-5.0); ALBUMIN/GLOBULIN RATIO 0.8 (1.0-2.7); ALKALINE PHOSPHATASE 54 U/L (46-116); ASPARTATE AMINO TRANSFERASE 15 U/L (15-37); BILIRUBIN,TOTAL 0.5 MG/DL (0.2-1.0); CKMB 0.8 NG/ML (0.0-3.6); CREATINE KINASE 177 U/L (26-308)
[2018-11-25 14:45] VITALS: BP 119/77
[2018-11-25] MEDS ORDERED: OMEPRAZOLE20 M3 ORAL (14:54)
--- NOTE | 2018-11-25 14:54 | Emergency Room Report ---
History of Present Illness General Chief Complaint: General Complaint Source: Patient Present Illness HPI 38-year-old female with history of anxiety currently prescribed anxiety medication which is does not recall the name and does not take it here requesting of 1-1/2 weeks of chest tightness without any radiation. Patient reports of palpitation and chest tightness upon laying supine and feeling better when sitting. Patient reports that she is under a lot of stress at work. Denies suicidal homicidal ideations. Denies abdominal pain, nausea vomiting, headache and dizziness. Denies blurry vision. Denies urinary symptoms. Has not taken medication for symptom relief. Patient appears stable with stable vital signs. Denies history of tobacco smoke, alcohol intake, drug use. Allergies: Coded Allergies: No Known Allergies (Unverified , 11/15/15) Patient History Past Medical History: see triage record Past Surgical History: unable to obtain Pertinent Family History: none Last Menstrual Period: last week Now: No Immunizations: UTD Reviewed Nursing Documentation: PMH: Agreed; PSxH: Agreed Nursing Documentation-PMH Past Medical History: No History, Except For Hx Cardiac Problems: No Hx Hypertension: No Hx Pacemaker: No Hx Asthma: No Hx COPD: No Hx Diabetes: No Hx Cancer: No Hx Gastrointestinal Problems: No Hx Dialysis: No History Of Psychiatric Problem: No Hx Neurological Problems: No Hx Cerebrovascular Accident: No Hx Seizures: Yes - 13 years ago Review of Systems All Other Systems: negative except mentioned in HPI Physical Exam Vital Signs Date Time Temp Pulse Resp B/P (MAP) Pulse Ox O2 Delivery O2 Flow Rate FiO2 11/25/18 12:30 86 16 11/25/18 12:34 99.3 147/80 (102) 99 Room Air Sp02 EP Interpretation: reviewed, normal General Appearance: no apparent distress, alert, GCS 15, non-toxic Head: normocephalic, atraumatic Eyes: bilateral eye normal inspection, bilateral eye PERRL ENT: hearing grossly normal, normal pharynx, no angioedema, normal voice Neck: full range of motion, supple, supple/symm/no masses Respiratory: chest non-tender, lungs clear, normal breath sounds, no rhonchi, no respiratory distress, no retraction, no wheezing, speaking full sentences Cardiovascular #1: regular rate, rhythm, no edema, no murmur, normal capillary refill Cardiovascular #2: 2+ carotid (R), 2+ carotid (L), 2+ radial (R), 2+ radial (L) , 2+ dorsalis pedis (R), 2+ dorsalis pedis (L) Gastrointestinal: normal bowel sounds, non tender, soft, non-distended, no guarding, no rebound Rectal: deferred Genitourinary: normal inspection, no CVA tenderness Musculoskeletal: back normal, gait/station normal, normal range of motion, non- tender, no calf tenderness Neurologic: alert, oriented x3, responsive, motor strength/tone normal, sensory intact, speech normal Psychiatric: judgement/insight normal, memory normal, mood/affect normal, no suicidal/homicidal ideation Skin: no rash Lymphatic: no adenopathy Medical Decision Making PA Attestation All my diagnosis and treatment plans were reviewed ad discussed with my supervising physician Dr. Rose Diagnostic Impression: Primary Impression: Chest pain Additional Impressions: Anxiety GERD (gastroesophageal reflux disease) ER Course 38-year-old female with history of anxiety currently prescribed anxiety medication which is does not recall the name and does not take it here requesting of 1-1/2 weeks of chest tightness without any radiation. Patient reports of palpitation and chest tightness upon laying supine and feeling better when sitting. Patient reports that she is under a lot of stress at work. Denies suicidal homicidal ideations. Denies abdominal pain, nausea vomiting, headache and dizziness. Denies blurry vision. Denies urinary symptoms. Has not taken medication for symptom relief. Patient appears stable with stable vital signs. Denies history of tobacco smoke, alcohol intake, drug use. Ddx considered but are not limited to: MS, Angina, COPD, GERD, GERD, anxiety Vital signs: are WNL, pt. is afebrile H&PE are most consistent with chest pain, anxiety, GERD ORDERS: EKG, Chest XR, cardiac labs(troponin, CBC, CMP,, omeprazole, ED INTERVENTIONS: NS bolus, Zofran, Pepcid DISCHARGE: At this time pt. is stable for d/c to home. Will provide printed patient care instructions, and any necessary prescriptions. Care plan and follow up instructions have been discussed with the patient prior to discharge. I advised the patient to avoid eating spicy and acidic fluid patient reports that she eats and drinks a lot of acidic food. Also follow-up with primary care for better management of anxiety patient agrees. Also follow-up with [facility] for echocardiogram as needed for chest pain. EKG Diagnostic Results Rate: normal Rhythm: NSR ST Segments: no acute changes Other Impression No acute ST changes Chest X-Ray Diagnostic Results Chest X-Ray Diagnostic Results : Chest X-Ray Ordered: Yes # of Views/Limited/Complete: 1 View Indication: Chest Pain EP Interpretation: Yes PA Xray: Interpretation reviewed, by supervising MD, and agrees with findings. Interpretation: no consolidation, no effusion, no pneumothorax Impression: No acute disease Electronically Signed by: Sreekanth Alexis PA-C Last Vital Signs Date Time Temp Pulse Resp B/P (MAP) Pulse Ox O2 Delivery O2 Flow Rate FiO2 11/25/18 14:45 98.4 15 119/77 99 Room Air 11/25/18 12:34 81 Disposition: HOME, SELF-CARE Condition: Stable Scripts Omeprazole (OMEPRAZOLE) 20 Mg Tablet. 20 MG ORAL DAILY, #30 TAB Prov: Sreekanth Mejia 11/25/18 Referrals: NOT CHOSEN [facility]/,REFERRING (PCP) Patient Instructions: Food Choices for Gastroesophageal Reflux Disease, Adult, [id number], Generalized Anxiety Disorder, Nonspecific Chest Pain, [id number] Additional Instructions: Avoid eating spicy and acidic food, follow-up with your primary care physician for better management of anxiety. Also advised that you get a referral to [facility] for possible echocardiogram as needed. If worsening symptoms return to emergency room. Sreekanth Mejia Nov 25, 2018 14:54
--- NOTE | 2018-11-25 15:08 | NUR ---
ER DISCHARGE NOTE: Patient is cleared to be discharged per ERMD, pt is aox4, on room air, with stable vital signs. pt was given dc and prescription instructions, pt was able to verbalize understanding, pt id band and iv site removed without complications. pt is able to ambulate with steady gait. pt took all belongings. PT signed for self.
--- NOTE | 2018-11-25 16:58 | Diagnostic Imaging Report ---
Indication: Chest pain Technique: One view of the chest Comparison: 02/21/2018 Findings: Lungs and pleural spaces are clear. Heart size is normal . No significant change Impression: No acute process
--- NOTE | 2018-11-26 17:52 | Cardiology Report ---
APPROVED REPORT EKG Measurement Heart [id number] Unusual P axis, possible ectopic atrial rhythm Possible Lateral infarct, age undetermined Abnormal ECG
--- NOTE | 2018-11-26 17:52 | Cardiology Report ---
APPROVED REPORT EKG Measurement Heart [id number] Suspect arm lead reversal, interpretation assumes no reversal Unusual P axis, possible ectopic atrial rhythm Lateral infarct, age undetermined Abnormal ECG
== END 2018-11-25 15:08 | disposition home or self-care (01) ==
LOC: EMR 13:26
DX: R07.9 Chest pain, unspecified (principal); F41.9 Anxiety disorder, unspecified; K21.9 Gastro-esophageal reflux disease without esophagitis
CPT/HCPCS: 36415; 71045; 80053; 80307; 81003; 81025; 82550; 82553; 84484; 85025; 93005; 96360; Z7502; 99284; J7030

== ENCOUNTER 2018-11-29 00:01 | Emergency (ER) | payer MEDICAID ==
[~2018-11-29] VITALS: Ht 167.6 cm; Wt 113.4 kg
[~2018-11-29 00:01] MED LIST changes: +OMEPRAZOLE20 M3 ORAL
[2018-11-29 00:10] VITALS: BP 127/80
--- NOTE | 2018-11-29 00:10 | NUR ---
ED Nurse Note: Patient in room ortho. Patient states that yesterday at the [employer]re [employer] she thought she felt something bite her ankle but when she looked she saw nothing there, she scratched the ankle due to a slight itch. Todat she presents as she states that the ankle has swollen over the course of the day. On exam swelling to the lateral ankle, no wound, slight area of redness to the center of the ankle. Slight swelling also noted to the ankle area. Patient able to weght bear. Reported no pain but the ankle is itchy and intermittently tingling. Counselled patient on importance of not itching.
[2018-11-29] MEDS ORDERED: Clindamycin 150mg cap ORAL ONE (00:30)
[2018-11-29] MEDS ORDERED: Neosporin Oint Ud Pkt TOPIC ONE (00:30)
[2018-11-29] MEDS ORDERED: MUPIROCIN22 GM TOPIC (00:40)
[2018-11-29] MEDS ORDERED: CLINDAMYCIN HC300 MG ORAL (00:40)
--- NOTE | 2018-11-29 00:41 | Emergency Room Report ---
History of Present Illness General Chief Complaint: Skin Rash/Abscess Source: Patient Present Illness HPI Is a 38-year-old female with no past medical history. She presents with chief complaint of a possible insect/spider bite on the right ankle area. Onset for last 2 to 3 days. She felt swollen and tenderness in that area. There is some redness. No fever chills. No drainage. She says she felt something biting her but did not see anything. Denies any other complaint. Allergies: Coded Allergies: No Known Allergies (Unverified , 11/15/15) Patient History Past Medical History: see triage record, old chart reviewed Past Surgical History: none Pertinent Family History: none Social History: Denies: smoking Last Menstrual Period: 11/14/18 Now: No Immunizations: other Reviewed Nursing Documentation: PMH: Agreed; PSxH: Agreed Nursing Documentation-PMH Past Medical History: No History, Except For Hx Cardiac Problems: No Hx Hypertension: No Hx Pacemaker: No Hx Asthma: No Hx COPD: No Hx Diabetes: No Hx Cancer: No Hx Gastrointestinal Problems: No Hx Dialysis: No Hx Neurological Problems: No Hx Cerebrovascular Accident: No Hx Seizures: Yes - 13 years ago Review of Systems Eye: Denies: eye pain, blurred vision ENT: Denies: ear pain, nose congestion, throat swelling Respiratory: Denies: cough, shortness of breath Cardiovascular: Denies: chest pain, palpitations Gastrointestinal: Denies: abdominal pain, diarrhea, nausea, vomiting Musculoskeletal: Denies: back pain, joint pain Skin: Reports: rash Neurological: Denies: headache, numbness Endocrine: Denies: increased thirst, increased urine Hematologic/Lymphatic: Denies: easy bruising All Other Systems: negative except mentioned in HPI Physical Exam Vital Signs Date Time Temp Pulse Resp B/P (MAP) Pulse Ox O2 Delivery O2 Flow Rate FiO2 11/29/18 00:09 97.9 79 20 127/80 (96) 98 Room Air Vitals normal Sp02 EP Interpretation: reviewed, normal General Appearance: well appearing, no apparent distress, alert Head: normocephalic, atraumatic Eyes: bilateral eye PERRL, bilateral eye EOMI ENT: hearing grossly normal, normal pharynx Neck: full range of motion, supple, no meningismus Respiratory: chest non-tender, lungs clear, normal breath sounds Cardiovascular #1: regular rate, rhythm, no murmur Gastrointestinal: normal bowel sounds, non tender, no mass, no organomegaly, no bruit, non-distended Musculoskeletal: back normal, gait/station normal, normal range of motion, other - Right ankle: There is an area of erythema to the lateral malleolus of about 3 cm. There is soft tissue swelling. There is no crepitance or obvious abscess. Pulses normal. Psychiatric: mood/affect normal Medical Decision Making Diagnostic Impression: Primary Impression: Cellulitis of right foot ER Course Presents with cellulitis of her right foot. No fracture or dislocation. No evidence of necrotizing fasciitis or abscess that can be I&D. Will discharge home after giving a dose of antibiotics here. Explained to patient that if symptoms worsen, she needs to come back for IV antibiotics. Last Vital Signs Date Time Temp Pulse Resp B/P (MAP) Pulse Ox O2 Delivery O2 Flow Rate FiO2 11/29/18 00:09 97.9 79 20 127/80 (96) 98 Room Air Status: improved Disposition: HOME, SELF-CARE Condition: Stable Scripts Mupirocin* (MUPIROCIN*) 22 Gm Oint...g. 1 APPLIC TOPIC THREE TIMES A DAY, #22 GM Prov: Wojciech Vaughan MD 11/29/18 Clindamycin Hcl (CLINDAMYCIN HCL) 300 Mg Capsule 300 MG ORAL THREE TIMES A DAY, #21 CAP Prov: Wojciech Vaughan MD 11/29/18 Referrals: SMITHA RICH,REFERRING (PCP) Additional Instructions: Elevate leg. Follow-up with your doctor in 2-3 days for recheck. If symptoms worsen, return for recheck and IV antibiotics. Wojciech Vaughan MD Nov 29, 2018 00:41
--- NOTE | 2018-11-29 00:51 | NUR ---
ER DISCHARGE NOTE: Patient is cleared to be discharged per ERMD, pt is aox4, on room air. pt was given dc and prescription instructions both verbally and written, pt was able to verbalize understanding, pt id band removed. pt is able to ambulate with steady gait. pt took all belongings.
== END 2018-11-29 00:51 | disposition home or self-care (01) ==
LOC: EMR 00:11
DX: L03.115 Cellulitis of right lower limb (principal)
CPT/HCPCS: 99282

== ENCOUNTER 2019-06-11 17:04 | Emergency (ER) | payer MEDICAID ==
[~2019-06-11] VITALS: Ht 167.6 cm; Wt 113.4 kg
[~2019-06-11 17:04] MED LIST changes: +CLINDAMYCIN HC300 MG ORAL; +MACROBID100 MG ORAL
--- NOTE | 2019-06-11 17:25 | NUR ---
ED Nurse Note: Pt from home came in due to buzzing sound hear on left ear happened mostly at night x 1 month. Pt's VSS, on RA, afebrile on triage. Pt denies any hearing difficulties nor ear drainage.
[2019-06-11 17:37] VITALS: BP 124/85
--- NOTE | 2019-06-11 17:39 | NUR ---
ED Nurse Note: ERPA at bedside.
--- NOTE | 2019-06-11 17:49 | Emergency Room Report ---
History of Present Illness General Chief Complaint: Earache Source: Patient Present Illness HPI 39-year-old female presents to the emergency department complaining of fullness in the left ear x1 month. Patient describes pressure sensation. She denies pain or ear discharge. She denies trauma. Patient denies inability to hear however she states some mild muffle hearing out of the ear. Patient denies symptoms on the right ear. She denies fevers or chills. Nasal congestion or rhinorrhea. No other aggravating or relieving factors. Allergies: Coded Allergies: No Known Allergies (Unverified , 11/15/15) COVID-19 Screening Contact w/high risk pt: No Recent Travel to affected area: No Experienced COVID-19 symptoms?: No Patient History Past Medical History: see triage record Past Surgical History: none Pertinent Family History: none Last Menstrual Period: 06/08/19 Now: No Reviewed Nursing Documentation: PMH: Agreed; PSxH: Agreed Nursing Documentation-PMH Past Medical History: No History, Except For Hx Cardiac Problems: No Hx Hypertension: No Hx Pacemaker: No Hx Asthma: No Hx COPD: No Hx Diabetes: No Hx Cancer: No Hx Gastrointestinal Problems: No Hx Dialysis: No Hx Neurological Problems: No Hx Cerebrovascular Accident: No Hx Seizures: Yes - 13 years ago Review of Systems All Other Systems: negative except mentioned in HPI Physical Exam Vital Signs Date Time Temp Pulse Resp B/P (MAP) Pulse Ox O2 Delivery O2 Flow Rate FiO2 06/11/19 17:13 98.2 78 20 124/85 (98) 95 Room Air Sp02 EP Interpretation: reviewed, normal General Appearance: no apparent distress, alert, GCS 15, non-toxic Head: normocephalic, atraumatic Eyes: bilateral eye normal inspection, bilateral eye PERRL ENT: hearing grossly normal, normal voice, TMs + canals normal - no cerumen, no erytehma, no buldging, no serous fluid visible. Neck: full range of motion Respiratory: lungs clear, normal breath sounds, speaking full sentences Cardiovascular #1: regular rate, rhythm Musculoskeletal: normal range of motion, gait/station normal, non-tender Neurologic: alert, motor strength/tone normal, oriented x3, sensory intact, responsive, speech normal Psychiatric: judgement/insight normal Skin: no rash Lymphatic: no adenopathy Medical Decision Making PA Attestation Dr. Palma Is my supervising Physician whom patient management has been discussed with. Diagnostic Impression: Primary Impression: Discomfort of left ear Additional Impression: Ear congestion Qualified Codes: H93.8X2 - Other specified disorders of left ear ER Course 39-year-old female presents to the emergency department complaining of fullness in the left ear x1 month. Patient describes pressure sensation. She denies pain or ear discharge. She denies trauma. Patient denies inability to hear however she states some mild muffle hearing out of the ear. Patient denies symptoms on the right ear. She denies fevers or chills. Nasal congestion or rhinorrhea. No other aggravating or relieving factors. Ddx considered but are not limited to OM, OE, mastoiditis, TM perforation, FB Vital signs: are WNL, pt. is afebrile H&PE are most consistent with normal appearing ear canal and drum, suspect due to sinus congestion ORDERS: none required at this time, the diagnosis is clinical -OTOSCOPY: WNL ED INTERVENTIONS: None required at this time. DISCHARGE: At this time pt. is stable for d/c to home. Will provide printed patient care instructions, and any necessary prescriptions. Care plan and follow up instructions have been discussed with the patient prior to discharge. Last Vital Signs Date Time Temp Pulse Resp B/P (MAP) Pulse Ox O2 Delivery O2 Flow Rate FiO2 06/11/19 17:37 98.2 20 124/85 95 Room Air 06/11/19 17:13 78 Disposition: HOME, SELF-CARE Condition: Stable Referrals: [facility] Patient Instructions: Earache Additional Instructions: Take medications as directed. Follow up with a Primary Care Provider in 3-5 days, even if your symptoms have resolved. ENT Specialist if symptoms do not resolve. --Please review list of primary care clinics, if you do not already have a primary care provider Return sooner to ED if new symptoms occur, or current symptoms become worse. - Please note that this Emergency Department Report was dictated using [employer] meat technology software, occasionally this can lead to erroneous entry secondary to interpretation by the dictation equipment. Xochitl Moore June 11, 2019 17:49
[2019-06-11] MEDS ORDERED: SUPHEDRIN30 MG PO (17:51)
[2019-06-11 17:56] VITALS: BP 124/85
--- NOTE | 2019-06-11 17:56 | NUR ---
ER DISCHARGE NOTE: Patient is cleared to be discharged per ERPA, pt is aox4, on room air, with stable vital signs. pt was given dc and prescription instructions, pt was able to verbalize understanding, pt id band removed. pt is able to ambulate with steady gait. pt took all belongings.
== END 2019-06-11 17:56 | disposition home or self-care (01) ==
LOC: EMR 17:40
DX: H93.8X2 Other specified disorders of left ear (principal); H92.02 Otalgia, left ear; G40.909 Epilepsy, unspecified, not intractable, without status epilepticus
CPT/HCPCS: 99282

== ENCOUNTER 2019-10-16 18:50 | Emergency (ER) | payer MEDICAID ==
[~2019-10-16] VITALS: Ht 167.6 cm; Wt 113.4 kg
[~2019-10-16 18:50] MED LIST changes: +SUPHEDRIN30 MG PO
[2019-10-16] MEDS ORDERED: Lidocaine 1% MPF 10mg/ml 5ml INJ ONE (19:15)
[2019-10-16] MEDS ORDERED: metroNIDAZOLE 500mg tab ORAL ONE (19:15)
[2019-10-16] MEDS ORDERED: Azithromycin 250mg tab ORAL ONE (19:15)
[2019-10-16 19:20] VITALS: BP 121/81
--- NOTE | 2019-10-16 19:23 | Emergency Room Report ---
History of Present Illness General Chief Complaint: Female Urogenital Problems Source: Patient Present Illness HPI 39F c/o malodorous urine and increased frequency of urination. Patient is sexually active with 2 male partners. She is concerned about UTI and requesting empiric treatment for gonorrhea and chlamydia. She uses condoms with one male partner but not the other. She has history of previous STD when she was 17 which she states was fully treated. Last menstrual period was recently and she is not concerned for . Denies fever, flank pain, abdominal pain, vaginal discharge, vaginal bleeding, melena, hematochezia, hematuria, history of kidney stones, fever, rash, chills, headache, photophobia The patient's symptoms were gradual onset, severity was 14 days, duration since 14 days. Quality: Malodorous Past medical history: Denies Past surgical history: Denies Smoking: Denies Alcohol use: Denies Drug use: Denies Review of systems: CONST: No fevers or chills, No night sweats PULMONARY: No productive cough, No shortness of breath CARDIAC: No chest pain, No palpitations GI: No vomiting, No diarrhea , No melena_or_BRBPR : No dysuria, No hematuria, No discharge NEURO: No new_focal_weakness_or_numbness, No confusion, No vision changes 14 point Review of Systems is otherwise negative except per HPI Physical Exam: GENERAL: Awake_alert_ nontoxic, no acute distress Spo2 100% on RA -normal EYES: Extraocular muscles are intact. Conjunctivae clear. Lids without swelling ENT: External nose and ear normal_in_appearance. Oropharynx clear. Head_ atraumatic, Moist_oral_mucosa NECK: No JVD. No meningismus. No thyromegaly. Supple. Trachea midline RESP: Normal respiratory effort. Symmetric rise. No stridor. Clear_to_ auscultation_No_rales_No_wheezes CARDIAC: Regular rate and regular rhytm. No_significant pedal edema. ABDOMEN: Soft. Nondistended. Nontender_No_rebound_or_guarding. Pelvic examination: I offered pelvic exam, however patient declined because she states that she "has been working all day and is not fresh" MSK: Normal muscle tone, without rigidity. Extremities without asymmetric deformity or swelling. SKIN: Warm and dry. No visible cyanosis or pallor NEUROLOGIC: Alert, oriented x3. Motor_and_sensation_grossly_intact. No truncal ataxia. Gait_normal Psych: Normal mood and affect, normal judgment and insight - COORDINATION OF CARE Case was discussed with: Patient Any labs that were ordered were interpreted as part of the medical decision making: Medical Decision Making/Plan: Differential diagnosis includes chlamydia, gonorrhea, other STDs, UTI, among others Patient is nontoxic and well-appearing, no evidence of sepsis or pyelonephritis based on presentation. Abdominal examination is benign. No CVA tenderness to palpation. Patient declines pelvic examination. Urinalysis shows cystitis. Doubt pyelonephritis. She is afebrile and well- appearing. Able to tolerate p.o. Patient was empirically treated with ceftriaxone and azithromycin for chlamydia versus gonorrhea. She also requested treatment for bacterial vaginosis, so she was treated for trichomoniasis as well. She received Flagyl 2 g p.o. She was counseled to not drink alcohol for at least 1 week. Recommended no sexual intercourse with infected partners and follow-up with OB/ [facility] for routine outpatient [facility] follow-up. Patient understands to get the rest of STD testing with their PMD including HIV and syphilis, among others. Safe sex practices were discussed. Will DC with [employer] Urine culture sent. Allergies: Coded Allergies: No Known Allergies (Unverified , 11/15/15) COVID-19 Screening Contact w/high risk pt: No Recent Travel to affected area: No Experienced COVID-19 symptoms?: No COVID-19 Testing performed DISPLAY DESIGNER OUTSIDE: No Patient History Now: No Nursing Documentation-PMH Past Medical History: No History, Except For Hx Cardiac Problems: No Hx Hypertension: No Hx Pacemaker: No Hx Asthma: No Hx COPD: No Hx Diabetes: No Hx Cancer: No Hx Gastrointestinal Problems: No Hx Dialysis: No Hx Neurological Problems: No Hx Cerebrovascular Accident: No Hx Seizures: Yes - 13 years ago Physical Exam Vital Signs Date Time Temp Pulse Resp B/P (MAP) Pulse Ox O2 Delivery O2 Flow Rate FiO2 10/16/19 18:51 98.1 87 17 121/81 (94) 99 Room Air Sp02 EP Interpretation: reviewed, normal Medical Decision Making Diagnostic Impression: Primary Impression: STI (sexually transmitted infection) Last Vital Signs Date Time Temp Pulse Resp B/P (MAP) Pulse Ox O2 Delivery O2 Flow Rate FiO2 10/16/19 18:51 98.1 87 17 121/81 (94) 99 Room Air Disposition: HOME, SELF-CARE Admit Decision Time: 19:20 Condition: Stable Scripts Acetaminophen* (TYLENOL EXTRA STRENGTH*) 500 Mg Tablet 500 MG ORAL Q8H PRN for Prn Headache/Temp > 101, #30 TAB 0 Refills Prov: Meghan Martinez D.O. 10/16/19 Cephalexin* (KEFLEX*) 500 Mg Capsule 500 MG ORAL EVERY 12 HOURS, #14 CAP 0 Refills Prov: Meghan Martinez D.O. 10/16/19 Referrals: NON PHYSICIAN (PCP) Patient Instructions: Sexually Transmitted Disease, [id number] Additional Instructions: Instructions for patient/practice administrator: Follow up with your physician in 1-2 days. Use condoms as protection. Follow up with [facility] for pap smear Do not drink alcohol for 1 week Follow-up with your doctor sooner if your condition requires a more timely clinical reevaluation. Return to the emergency department immediately if you feel that your condition is worsening or if you have any new or concerning symptoms. Review your discharge instructions and take any prescriptions given as instructed. Meghan Martinez D.O. Oct 16, 2019 19:23
[2019-10-16] MEDS ORDERED: TYLENOL EXTRA500 MG ORAL (19:25)
[2019-10-16] MEDS ORDERED: CEPHALEXIN500 MG ORAL (19:25)
[2019-10-16 19:51] LABS: APPEARANCE,URINE SLIGHTLY CLOUDY; BILIRUBIN, URINE NEGATIVE (NEGATIVE); GLUCOSE, URINE (UA) NEGATIVE (NEGATIVE); KETONES,URINE NEGATIVE (NEGATIVE); LEUKOCYTE ESTERASE ,URINE 3+ (NEGATIVE); NITRITE,URINE NEGATIVE (NEGATIVE); PH,URINE 6.5 (4.5-8.0); PROTEIN,URINE NEGATIVE (NEGATIVE); UROBILINOGEN,URINE 4 MG/DL (0.0-1.0)
[2019-10-16 19:55] LABS: COLOR,URINE YELLOW
[2019-10-16 20:08] VITALS: BP 121/81
== END 2019-10-16 20:08 | disposition home or self-care (01) ==
LOC: EMR 19:12
DX: A64 Unspecified sexually transmitted disease (principal); G40.909 Epilepsy, unspecified, not intractable, without status epilepticus
CPT/HCPCS: 81003; 81025; 87086; 87181; 96372; 96374; J0696; Q0144; Z7502; 99284